=== PATIENT | male | born 1945 | race Caucasian/White ===

== ENCOUNTER → 2018-06-05 | Outpatient (CLI) | payer OTHER | LOC: BMCIMAGING 14:58 | PROVIDERS: ATTEND Physician Assistant | DX: M16.0 Bilateral primary osteoarthritis of hip (principal) ==

== ENCOUNTER → 2018-07-01 | Outpatient (CLI) | payer OTHER | LOC: BMCIMAGING 14:49 | PROVIDERS: ATTEND Orthopaedic Surgery | DX: M16.11 Unilateral primary osteoarthritis, right hip (principal) ==

== ENCOUNTER → 2018-08-25 | Outpatient (CLI) | payer OTHER | LOC: FIMAGING 15:01 | PROVIDERS: ATTEND Physician Assistant | DX: M25.551 Pain in right hip (principal); S73.191A Other sprain of right hip, initial encounter ==

== ENCOUNTER → 2018-09-08 | Outpatient (CLI) | payer OTHER | LOC: FIMAGING 15:14 | PROVIDERS: ATTEND Orthopaedic Surgery | DX: Z01.818 Encounter for other preprocedural examination (principal); M16.11 Unilateral primary osteoarthritis, right hip ==

== ENCOUNTER 2018-10-26 05:58 | Inpatient (IN) | payer OTHER ==
[2018-10-26] MEDS ORDERED: TRANEXAMIC ACID 1,000 MG in NS 100 ML IV ONE (06:00)
[2018-10-26] MEDS ORDERED: ROPIVACAINE 0.2% 80 MG, EPINEPHrine 0.2 MG, KETOROLAC TROMETHAMINE 30 MG, morphINE 10 M... IU ONE (06:00)
[2018-10-26] MEDS ORDERED: FAMOTIDINE 20 MG TAB PO ONE (06:06)
[2018-10-26] MEDS ORDERED: ceFAZolin 2 GM/DEXTROSE 100 ML IV ONE (06:06)
[2018-10-26] MEDS ORDERED: LR 1,000 ML IV ONE (06:07)
[2018-10-26] MEDS: ACETAMINOPHEN 325 MG TAB PO ONE ×2 (06:25→11:02)
--- NOTE | 2018-10-26 06:36 | PDHPUP ---
History & Physical Update H&P update statement: This history and physical update is based on an assessment of the patient which was completed after admission or registration (within 24 hours), but prior to the surgery/procedure. H&P update: no change in patient's condition since H&P completed
--- NOTE | 2018-10-26 06:37 | PDIAF ---
- Diagnosis Diagnosis: right hip djd Code Status: Full Code - Medication Management Discharge Medications: electronically signed and located in the Home Medication List. - Orders Services needed: Home Care, Physical Therapy Home Care Face to Face: I certify that this patient was under my care and that I had the required [id number] encounter meeting the encounter requirements on the discharge day. My findings support the fact that the patient is homebound as defined in Home Care Face to Face Continued: CMS Chapter 7 Medicare Benefits Manual 30.1.1 , The condition of the patient is such that there exists a normal inability to leave home and consequently, leaving home would require a considerable and taxing effort. Diet Recommendation: no restrictions on diet Diet Texture: Regular Texture Diet Additional Instructions: TOTAL JOINT ARTHROPLASTY DISCHARGE INSTRUCTIONS 1. Your surgeon follows the [facility] protocol for reducing your risk of DVT (blood clots) following surgery. Medication will be ordered to prevent blood clots. A sudden increase in calf pain and/or swelling could indicate a blood clot in your leg. If this occurs, please call your surgeon or his/her driller's assistant. An ultrasound of the leg may be necessary to diagnose a blood clot. If you have conditions that make you a higher risk for blood clots, your surgeon may use more aggressive ways to prevent them. Notify your surgeon if you think you are a high risk for blood clots. 2. Wear your white surgical stockings (ALEJANDRO hose) for 2 weeks. This decreases your swelling and may help prevent blood clots. It is ok to remove ALEJANDRO hose at night time to give your legs a break. 3. Swelling and bruising in the surgical leg is common. If you feel that it is excessive, please notify your surgeon. 4. Elevate your surgical leg with the ankle above the hip several times every day. Please keep the leg straight when you elevate by putting pillows under your foot. Do not put pillows under your knee. This will make being able to fully straighten more difficult. This is uncomfortable, but try to do it as much as possible. 5. For total knee replacements use compressive wrap on your knee for 3-5 days after surgery, then you can discontinue it. 6. Use a walker or crutches for 1-2 weeks. Progress your weight-bearing as tolerated. You may start to use a cane when you feel stable and safe. 7. You will receive physical therapy instructions in the hospital. Continue those exercises at home. There are additional exercises in the total joint booklet you were given before surgery. Outpatient physical therapy will begin 7- 10 days after surgery. Please schedule this in advance. 8. Use ice on your knee at least 3-5 times every day for 30 minutes. This helps reduce pain and swelling. Also use it at night before falling asleep. 9. Leave your surgical dressing in place for 2 weeks. Your dressing is water resistant, but not waterproof. Cover it with Saran Wrap or Upliv-a-Fqus before showering. You may shower as soon as you feel safe entering a shower. If you notice bleeding from your incision 2 or 3 days after surgery, please notify your surgeon. 10. Due to narcotics, decreased activity and altered diet, most patients experience constipation after surgery. Use sbro-kox-fljjpxa stool softeners while you are on narcotics. 11. You may drive a car when you are comfortable bearing weight, have good muscular control of your leg and are off narcotics. This usually occurs 2-4 weeks after surgery, depending on which leg was operated on. 12. If there are questions not addressed here, please refer the [facility] book given for more information. If you still have questions, please contact your surgeon s office. 13. If you have a life-threatening emergency, please call 911 and go to the emergency room immediately. For non-life threatening emergencies, please call your physicians office for advice before going to the emergency room. - Follow Up Care Current Providers and Referrals: Chucho Galindo MD [Primary Care Provider] - Jimbo Berrios MD [Medical Doctor] -
[2018-10-26] MEDS ORDERED: ceFAZolin 1 GM/5 ML SYR ONE (06:52)
[2018-10-26] MEDS ORDERED: MIDAZOLAM 2 MG/2 ML VIAL ONE (07:03)
[2018-10-26] MEDS ORDERED: SCOPOLAMINE HYDROBROMIDE 1 MG/3 DAYS PATCH TD ONE (07:03)
[2018-10-26] MEDS ORDERED: MIDAZOLAM 2 MG/2 ML VIAL IVP ONE (07:05)
--- NOTE | 2018-10-26 07:05 | PDANEPAE ---
ANE History of Present Illness 72 yo sharon ANE Past Medical History - Cardiovascular History Hx Hypertension: Yes Hx Arrhythmias: No Hx Chest Pain: No Hx Coronary Artery / Peripheral Vascular Disease: No Hx CHF / Valvular Disease: No Hx Palpitations: No - Pulmonary History Hx COPD: No Hx Asthma/Reactive Airway Disease: No Hx Recent Upper Respiratory Infection: No Hx Oxygen in Use at Home: No Hx Sleep Apnea: No Sleep Apnea Screening Result - Last Documented: Positive - Neurologic History Hx Cerebrovascular Accident: No Hx Seizures: No Hx Dementia: No - Endocrine History Hx Diabetes: No - Renal History Hx Renal Disorders: Yes Renal History Comment: BPH - Liver History Hx Hepatic Disorders: No - Neurological & Psychiatric Hx Hx Neurological and Psychiatric Disorders: Yes Neurological / Psychiatric History Comment: MIGRAINES TREATED WITH RX - Cancer History Hx Cancer: No - Congenital Disorder History Hx Congenital Disorders: No - GI History Hx Gastrointestinal Disorders: No - Other Health History Other Health History: OSTEOARTHRITIS. RT HIP LABRAL TEAR - Chronic Pain History Chronic Pain: Yes (RT HIP) - Surgical History Prior Surgeries: CERVICAL FUSION 2000. RT KNEE SCOPE 2006. LUMBAR LAMINECTOMY. SEPTOPLASTY ANE Review of Systems Review of Systems: - Exercise capacity METS (RN): 4 METS ANE Patient History - Allergies Allergies/Adverse Reactions: No Known Allergies Allergy (Verified 10/07/18 11:23) - Home Medications Home medications: home medication list seen and reviewed Home Medications: Acetaminophen/Caffeine [Tension Headache Caplet] 1 each PO DAILY PRN 10/07/18 [ Last Taken 10/25/18] Finasteride [Proscar 5 MG (*)] 5 mg PO DAILY 10/07/18 [Last Taken 10/26/18] Lisinopril 30 mg PO HS 10/07/18 [Last Taken 10/25/18] Multivitamins [Multivitamin (*)] 1 each PO DAILY 10/07/18 [Last Taken 10/26/18] Propranolol HCl [Inderal Xl] 120 mg PO HS 10/07/18 [Last Taken 10/25/18] Propranolol Sr [Inderal LA 60mg (*)] 60 mg PO HS 10/07/18 [Last Taken 10/25/18] Tamsulosin HCl [Flomax 0.4 MG (*)] 0.4 mg PO DAILY 10/07/18 [Last Taken 10/26/18 ] Valium 2 MG (*) PRN 10/13/18 [Last Taken 1 Week Ago ~10/19/18] - NPO status NPO Status: no food or drink >8 hours NPO Since - Liquids (Date): 10/26/18 NPO Since - Liquids (Time): 05:00 NPO Since - Solids (Date): 10/25/18 NPO Since - Solids (Time): 17:00 - Smoking Hx Smoking Status: Former smoker ANE Labs/Vital Signs - Vital Signs Blood Pressure: 152/97 Heart Rate: 58 Respiratory Rate: 16 O2 Sat (%): 95 Height: 6 ft Weight: 79.379 kg ANE Physical Exam - Airway Neck exam: FROM, spinal fusion Mallampati Score: Class 2 Mouth exam: normal dental/mouth exam - Pulmonary Pulmonary: no respiratory distress - Cardiovascular Cardiovascular: regular rate and rhythym - ASA Status ASA Status: II ANE Anesthesia Plan Anesthesia Plan: spinal
[2018-10-26] MEDS ORDERED: SCOPOLAMINE HYDROBROMIDE 1 MG/3 DAYS PATCH TD SCH (07:15)
[2018-10-26] MEDS ORDERED: PROPOFOL/EMULSION 500 MG/50 ML BOTTLE IV ONE ×2 (07:21→08:12)
[2018-10-26] MEDS ORDERED: DIAZEPAM 5 MG TAB PO PRN (07:25)
[2018-10-26] MEDS ORDERED: fentaNYL 100 MCG/2 ML INJ ONE ×2 (07:38→08:52)
[2018-10-26] MEDS ORDERED: DEXAMETHASONE 4 MG/ML VIAL ONE (07:51)
[2018-10-26] MEDS ORDERED: ONDANSETRON 4 MG/2 ML VIAL ONE (07:51)
[2018-10-26] MEDS ORDERED: ONDANSETRON 4 MG/2 ML VIAL IVP PRN ×2 (08:22→08:26)
[2018-10-26] MEDS ORDERED: NALOXONE HCL 0.4 MG/ML INJ IVP PRN (08:22)
[2018-10-26] MEDS ORDERED: PROMETHAZINE HCL 25 MG/ML INJ IVP PRN ×2 (08:22→08:26)
[2018-10-26] MEDS ORDERED: HYDROmorphONE/DILAUDID 1 MG/ML INJ IVP PRN (08:22)
[2018-10-26] MEDS ORDERED: POLYETHYLENE GLYCOL 3350 17 GM PKT PO PRN (08:26)
[2018-10-26] MEDS ORDERED: PROMETHAZINE HCL 25 MG SUPPR PR PRN (08:26)
[2018-10-26] MEDS ORDERED: METOCLOPRAMIDE 10 MG/2 ML VIAL IVP PRN (08:26)
[2018-10-26] MEDS ORDERED: MAGNESIUM HYDROXIDE 30 ML UDCUP PO PRN (08:26)
[2018-10-26] MEDS ORDERED: BISACODYL 10 MG SUPP PR PRN (08:26)
[2018-10-26] MEDS ORDERED: CYCLOBENZAPRINE 10 MG TAB PO PRN (08:26)
[2018-10-26] MEDS ORDERED: DIPHENOXYLATE/ATROPINE LOMOTIL 1 TAB PO PRN (08:26)
[2018-10-26] MEDS ORDERED: LACTULOSE 20 GM/30 ML UDCUP PO PRN (08:26)
[2018-10-26] MEDS ORDERED: TEMAZEPAM 15 MG CAP PO PRN (08:26)
[2018-10-26] MEDS ORDERED: oxyCODONE IR 5 MG TAB PO PRN (08:26)
[2018-10-26] MEDS ORDERED: diphenhydrAMINE 25 MG CAP PO PRN (08:26)
[2018-10-26] MEDS ORDERED: ONDANSETRON DISINTEGRATING 4 MG TAB PO PRN (08:26)
--- NOTE | 2018-10-26 08:26 | POSTOPPROG ---
Post Op Note Date of Operation: 10/26/18 Surgeon: Jimbo Berrios Help Desk Coordinator: Irvin Anesthesiologist: Quinton Anesthesia: Spinal Pre-op Diagnosis: Right hip OA Post-op Diagnosis: Right hip OA Indication: Right hip OA Procedure: Right MARIBEL, COREY assist Findings: Right hip OA Inf/Abcess present in the surg proc area at time of surgery?: No Depth: Deep Incisional (Fascial) EBL: 100-500 Drains: Hemovac
[2018-10-26] MEDS ORDERED: LR 1,000 ML IV SCH (08:30)
--- NOTE | 2018-10-26 08:53 | POSTANESTH ---
Post Anesthetic Evaluation Cardiovascular Status: Normal, Stable Respiratory Status: Normal, Stable Level of Consciousness/Mental Status: Can Participate in Eval Pain Control: Adequate, Prn Tx Ordered Nausea/Vomiting Control: Adequate, Prn Tx Ordered Complications Possibly Related to Anesthesia: None Noted
[2018-10-26] MEDS: fentaNYL 100 MCG/2 ML INJ IVP PRN ×2 (08:59→09:20)
[2018-10-26] MEDS: FINASTERIDE 5 MG TAB PO SCH (11:02)
[2018-10-26] MEDS: TAMSULOSIN HCL 0.4 MG CAP PO SCH (11:03)
[2018-10-26] MEDS: SENNOSIDES/DOCUSATE SODIUM TAB PO SCH ×2 (11:03→21:07)
--- NOTE | 2018-10-26 13:19 | PDMN ---
Medical Necessity Medical necessity: [facility] [place] S[place] MEHDI INMICHAEL OP: R MARIBEL, COREY assist AUTH#[id number] FOR CPT 20311 INPT
--- NOTE | 2018-10-26 14:14 | SOAPPROG ---
SOAP Progress Note Assessment/Plan: Assessment: s/p right MARIBEL, anterior approach, Biju assist - procedure earlier this morning Plan: Begin discharge planning - going home, will have support of his , home health Begin PT - follow anterior MARIBEL precautions Continue pain medication Continue VTE ppx - aspirin 325 mg Q daily, SCDs, ALEJANDRO hose Remove drain tomorrow morning 10/26/18 14:10 Subjective: Patient states he is feeling pretty good at this time. He is hoping to go home tomorrow and will have the support of his . He is also planning on having home health for a short period of time. He has already arranged outpatient PT. Patient denies shortness of breath, chest pain, fever, chills, nausea, vomiting , calf pain. Objective: Vital Signs Temp Pulse Resp BP Pulse Ox 36.4 C 65 12 113/71 93 10/26/18 14:06 10/26/18 14:06 10/26/18 14:06 10/26/18 14:06 10/26/18 14:06 10/25/18 10/26/18 10/27/18 05:59 05:59 05:59 Intake Total 1560 Output Total 10 Balance 1550 Patient resting comfortably in bed, no acute distress. RLE: Wound dressings are clean, dry and intact. Drain is in place. Lower leg compartments are soft and nontender. He can actively DF and PF the right foot and great toe against resistance. Grossly NVI distally. ICD10 Worksheet Patient Problems: Problems Problem Status Onset Unilateral primary osteoarthritis, right hip Acute
[2018-10-26] MEDS: ACETAMINOPHEN 325 MG TAB PO SCH ×2 (14:40→21:08)
--- NOTE | 2018-10-26 15:28 | ASMTCMCOM ---
CM Note CM Note Notes: Pt is s/p R MARIBEL. PT has cleared him. Anticipate he will d/c home independent with his when medically cleared. CM will continue to follow for any change in needs. D/C plan: anticipate home independent Date Signed: 10/26/2018 03:27 PM Electronically Signed By:BJORN Guajardo
[2018-10-26] MEDS: ceFAZolin 2 GM/DEXTROSE 100 ML IV SCH (15:49)
[2018-10-26] MEDS: TRANEXAMIC ACID 650 MG TAB PO SCH (15:49)
[2018-10-26] MEDS ORDERED: LISINOPRIL 20 MG TAB PO SCH (21:00)
[2018-10-26] MEDS ORDERED: PROPRANOLOL SR 60 MG CAP PO SCH ×2 (21:00)
[2018-10-26] MEDS: FAMOTIDINE 20 MG TAB PO SCH (21:06)
[2018-10-26] MEDS: ASPIRIN 325 MG TAB PO SCH (21:09)
[2018-10-27] MEDS: TRANEXAMIC ACID 650 MG TAB PO SCH ×2 (00:04→09:12)
[2018-10-27] MEDS: ceFAZolin 2 GM/DEXTROSE 100 ML IV SCH (00:08)
[2018-10-27] MEDS: ACETAMINOPHEN 325 MG TAB PO SCH ×2 (03:11→09:13)
[2018-10-27 08:09] VITALS: BP 104/69
--- NOTE | 2018-10-27 08:28 | SOAPPROG ---
SOALEJANDRINA Progress Note Assessment/Plan: Assessment: s/p right MARIBEL, anterior approach, Biju assist - POD1 Anemia - expected initially post-operatively. Asymptomatic. Will continue to monitor Plan: Discharge planning - patient is doing better than expected. He will be going home today, will have support of his . He will have home health/PT arranged Begin PT - follow anterior MARIBEL precautions. PT will need to clear him prior to d /c. WBAT, work on ROM as tolerated Continue pain medication Continue VTE ppx - aspirin 325 mg once daily, SCDs, ALEJANDRO hose. He will take aspirin until 6 weeks post-op and wear ALEJANDRO hose until 2 weeks post-op Follow up with Dr. Berrios's office at 2 weeks post-op Seek attention for increased pain, swelling, redness or other focal complaints Subjective: Patient states he is feeling very good this morning, he feels ready to leave for home. Patient has worked with PT this morning and will do OT later this morning. He denies shortness of breath, chest pain, fever, chills, nausea. Objective: Vital Signs Temp Pulse Resp BP Pulse Ox 37.1 C 62 16 104/69 95 10/27/18 08:00 10/27/18 08:00 10/27/18 08:00 10/27/18 08:00 10/27/18 08:00 Laboratory Results 10/27/18 04:14 10/26/18 10/27/18 10/28/18 05:59 05:59 05:59 Intake Total 2009 Output Total 1230 Balance 780 Patient is standing up with a walker. No acute distress. RLE: Drain has been removed. New Mepilex dressings have been applied. Lower leg compartments are soft, nontender, negative Homans sign. He can actively DF and PF his foot and great toe against resistance. Grossly NVI distally. ICD10 Worksheet Patient Problems: Problems Problem Status Onset Unilateral primary osteoarthritis, right hip Acute
--- NOTE | 2018-10-27 08:34 | PDDCSUM ---
Discharge Summary Discharge Summary: ADMIT DIAGNOSIS: Right hip degenerative joint disease DISCHARGE DIAGNOSIS: Right hip degenerative joint disease DATE/NAME OF PROCEDURE: October Right hip arthroplasty, anterior approach, Biju assist HPI: The patient is a 72 year old male who has end-stage arthritis of his right hip. Clinical and radiographic features are consistent with this. Patient has failed attempts at conservative management, therefore, recommended operative right total hip replacement. HOSPITAL COURSE: Patient was admitted to the hospital floor after uncomplicated right total hip arthroplasty. Patient tolerated the procedure well and had no additional complications. At the time of discharge, patient is tolerating an oral diet, pain is well controlled on oral medications, and is voiding without difficulty. Dressing is clean, dry and intact. There is no swelling or calf tenderness. Patient has intact plantarflexion, dorsiflexion, EHL function. X- rays demonstrate anatomic positioning with no fracture or lucency. DISCHARGE ACTIVITY: Patient is WBAT and can perform ROM as tolerated. Patient was instructed to keep dressing clean, dry and intact. He can shower but cannot take a bath/submerge the right hip. Patient is to seek attention for increasing redness, swelling, drainage or discharge. He will work with home PT for 1-2 weeks and then he will start outpatient PT. DISCHARGE MEDICATIONS: oxycodone 5 mg 1-2 every 3 hours prn pain, cyclobenzaprine 10 mg PO every 8 hours prn spasm, Zofran 4 mg orally disintegrating tablet every 8 hours prn nausea, aspirin 325 mg PO daily. FOLLOW-UP: Follow up in 2 weeks. Again, patient is to seek attention for increasing redness, swelling, drainage or discharge.
[2018-10-27] MEDS: TAMSULOSIN HCL 0.4 MG CAP PO SCH (09:12)
[2018-10-27] MEDS: FINASTERIDE 5 MG TAB PO SCH (09:12)
[2018-10-27] MEDS: ASPIRIN 325 MG TAB PO SCH (09:12)
[2018-10-27] MEDS: SENNOSIDES/DOCUSATE SODIUM TAB PO SCH (09:12)
[2018-10-27] MEDS: FAMOTIDINE 20 MG TAB PO SCH (09:13)
--- NOTE | 2018-10-27 09:44 | PDIAF ---
- Diagnosis Diagnosis: right hip djd Code Status: Full Code - Medication Management Discharge Medications: electronically signed and located in the Home Medication List. - Orders Services needed: Home Care, Physical Therapy Home Care Face to Face: I certify that this patient was under my care and that I had the required [id number] encounter meeting the encounter requirements on the discharge day. My findings support the fact that the patient is homebound as defined in Home Care Face to Face Continued: CMS Chapter 7 Medicare Benefits Manual 30.1.1 , The condition of the patient is such that there exists a normal inability to leave home and consequently, leaving home would require a considerable and taxing effort. Diet Recommendation: no restrictions on diet Diet Texture: Regular Texture Diet Additional Instructions: TOTAL JOINT ARTHROPLASTY DISCHARGE INSTRUCTIONS 1. Your surgeon follows the [facility] protocol for reducing your risk of DVT (blood clots) following surgery. Medication will be ordered to prevent blood clots. A sudden increase in calf pain and/or swelling could indicate a blood clot in your leg. If this occurs, please call your surgeon or his/her information services assistant. An ultrasound of the leg may be necessary to diagnose a blood clot. If you have conditions that make you a higher risk for blood clots, your surgeon may use more aggressive ways to prevent them. Notify your surgeon if you think you are a high risk for blood clots. 2. Wear your white surgical stockings (ALEJANDRO hose) for 2 weeks. This decreases your swelling and may help prevent blood clots. It is ok to remove ALEJANDRO hose at night time to give your legs a break. 3. Swelling and bruising in the surgical leg is common. If you feel that it is excessive, please notify your surgeon. 4. Elevate your surgical leg with the ankle above the hip several times every day. Please keep the leg straight when you elevate by putting pillows under your foot. Do not put pillows under your knee. This will make being able to fully straighten more difficult. This is uncomfortable, but try to do it as much as possible. 5. For total knee replacements use compressive wrap on your knee for 3-5 days after surgery, then you can discontinue it. 6. Use a walker or crutches for 1-2 weeks. Progress your weight-bearing as tolerated. You may start to use a cane when you feel stable and safe. 7. You will receive physical therapy instructions in the hospital. Continue those exercises at home. There are additional exercises in the total joint booklet you were given before surgery. Outpatient physical therapy will begin 7- 10 days after surgery. Please schedule this in advance. 8. Use ice on your knee at least 3-5 times every day for 30 minutes. This helps reduce pain and swelling. Also use it at night before falling asleep. 9. Leave your surgical dressing in place for 2 weeks. Your dressing is water resistant, but not waterproof. Cover it with Saran Wrap or Ilugi-q-Ynhv before showering. You may shower as soon as you feel safe entering a shower. If you notice bleeding from your incision 2 or 3 days after surgery, please notify your surgeon. 10. Due to narcotics, decreased activity and altered diet, most patients experience constipation after surgery. Use qeoo-tui-epdtsys stool softeners while you are on narcotics. 11. You may drive a car when you are comfortable bearing weight, have good muscular control of your leg and are off narcotics. This usually occurs 2-4 weeks after surgery, depending on which leg was operated on. 12. If there are questions not addressed here, please refer the [facility] book given for more information. If you still have questions, please contact your surgeon s office. 13. If you have a life-threatening emergency, please call 911 and go to the emergency room immediately. For non-life threatening emergencies, please call your physicians office for advice before going to the emergency room. - Follow Up Care Current Providers and Referrals: Chucho Galindo MD [Primary Care Provider] - Jimbo Berrios MD [Medical Doctor] - follow up in 2 weeks
--- NOTE | 2018-10-27 09:59 | ASMTLACE ---
LACE Length of stay for Answers: 2 days current admission Acuity / Level of Answers: Yes Care: Did the patient have an inpatient admission? Comorbidities - select Answers: Opioid dependence all that apply / Chronic pain Other Notes: HTN # of Emergency department Answers: 0 visits in the last 6 months Score: 10 Date Signed: 10/27/2018 09:55 AM Electronically Signed By:BJORN [place]
--- NOTE | 2018-10-27 10:22 | ASMTCMCOM ---
CM Note CM Note Notes: PT rec home care/outpatient. Pt wants [facility], chooses [facility]. Orders to be obtained via [employer]. Pt d/c address/phone verified. Date Signed: 10/27/2018 09:57 AM Electronically Signed By:BJORN [place]
--- NOTE | 2018-10-27 11:01 | GOP ---
[f rep st] OPERATIVE REPORT DATE OF OPERATION: 10/26/2018 SURGEON: Jimbo Berrios MD VICE PRESIDENT BUSINESS & CORPORATE DEVELOPMENT: Kolton Bryan, [employer], who was medical necessity for the entirety of the case. PREOPERATIVE DIAGNOSIS: Right hip degenerative joint disease. POSTOPERATIVE DIAGNOSIS: Right hip degenerative joint disease. PROCEDURE PERFORMED: Right total hip arthroplasty, MAKOplasty. FINDINGS: SPECIMENS: To pathology, the femoral head. ESTIMATED BLOOD LOSS: 200 cc. INDICATIONS: The patient is a -year-old gentleman who has end-stage arthritis to his righ t hip. Clinical and radiographic features are consistent with this. He has failed all attempts at c onservative management. I have therefore recommended operative intervention. I have outlined the downs rgical procedure, risks, benefits, and alternatives. He wished to proceed. Written consent was sign ed and placed in the patient's chart. DESCRIPTION OF PROCEDURE: The patient was identified in the preanesthesia area. The right hip clear ly demarcated as the operative site with indelible marker. He was given 2 g of Ancef intravenously e n route to the operative suite. In the OR, a spinal anesthetic was placed. He was positioned in the supine position. Additional sedation was performed. The pelvis and both lower extremities were kobi rilely prepped and draped in the usual fashion. Appropriate time-out procedure was carried out. Att ention was first turned to the left hemipelvis. A 2 cm incision was made over the iliac crest. Thre e pins were then placed and a pelvic reference array was affixed. Attention was then turned to the r ight hip, an anterior approach was made. Thick subcutaneous flaps were elevated. The fascia overlyi ng the tensor was opened and the tensor retracted laterally. The underlying vascular structures were cauterized and transected, and the rectus elevated off the anterior capsule. Retractors were placed into an extracapsular position. A T capsulotomy was then made and retractors were placed into an in tracapsular position. An acetabular checkpoint was placed. A bony wedge was withdrawn from the femo ral neck followed by removal of the femoral head. The bony landmarks were entered into the computer using the MAKOplasty software. The acetabular landmarks were then entered. A resection with a 54 mm acetabular reamer was then placed with an opening angle of 40 degrees and anteversion of 20 degrees. An acetabular shell was then placed, impacted, and confirmed to be fully seated. A 0-degree X3 yanira er was then placed and confirmed to be fully seated. The check point was removed. Attention was the n turned to the femur which was delivered through the use of extension of the table, soft tissue rele ases, the proximal canal was opened with a rongeur. Serial broaching carried out to a size 5 stem. Trial reduction was carried out, and ultimately, a 36 mm +0 mm neck length head was selected. Intrao perative fluoroscopy was used to confirm appropriate anatomic positioning. Leg lengths were equal, a nd stability profile revealed no subluxation with external rotation to 90 degrees in extension and hy perextension. The trial stem was withdrawn. A final size 5 stem was impacted, confirmed to be fully seated. A 36 mm, 0 mm Biolox head was then placed. The hip was copiously irrigated and reduced, wi th stable as above. A 10-Turkish PVC drain was then placed. The tissue was then copiously irrigated with pulsatile lavage. The skin, subcutaneous tissue, and muscle were injected with a joint cocktail of ropivacaine, Toradol, and epinephrine. The fascia closed using 0 Vicryl, subcutaneous tissue usi ng 2-0 Monocryl, and the skin stapled. A sterile compressive dressing was applied. The patient was awakened and taken to the recovery room in good, stable condition. TOTAL TOURNIQUET TIME: None. COMPLICATIONS: None. IMPLANT: Maurice Trident II acetabular shell, size 54 mm, 0-degree X3 liner, 36 mm inner diameter. Accolade II 127 degree neck angle hip stem size 5, Biolox ceramic head, 36 mm +0 mm neck length. DISPOSITION: To the recovery room, then the floor. He is weightbearing. Anterior precautions. /[id number]/MODL
--- NOTE | 2018-10-27 11:14 | ASDISCHSUM ---
Discharge Information Plan Status:Home with Home Health Medically Cleared to Leave: Discharge Date:10/27/2018 10:51 AM CM D/C Disposition: ADT D/C Disposition:Home Health Service Projected Discharge Date:10/27/2018 11:00 AM Transportation at D/C: Discharge Delay Reason: Follow-Up Date:10/27/2018 11:00 AM Discharge Slot: Final Diagnosis: Placement Information Referral Type:*Home Health Care Services Referral ID:[id number] Provider Name:[facility] Address 1:[address] Address 2: City:[place] Selection Factors: State:[place] Patient Contact Information Contact Name:MEET Relationship: Address:[address] City:[place] Alternate Phone: State/Zip Code:[place] [address] Email: Financial Information Financial Class:Medicare Advantage Plans Primary Plan Desc:[employer] MED[employer]ARE ADV Primary Plan Number:[id number] Secondary Plan Desc: Secondary Plan Number: Assessment Information LACE LACE Length of stay for Answers: 2 days current admission Acuity / Level of Answers: Yes Care: Did the patient have an inpatient admission? Comorbidities - select Answers: Opioid dependence all that apply / Chronic pain Other Notes: HTN # of Emergency department Answers: 0 visits in the last 6 months Score: 10 Date Signed: 10/27/2018 09:55 AM Electronically Signed By:BJORN [place] [facility] CM Progress Note CM Note CM Note Notes: Pt is s/p R MARIB[facility]. PT has cleared him. Anticipate he will d/c home independent with his when medically cleared. CM will continue to follow for any change in needs. D/C plan: anticipate home independent Date Signed: 10/26/2018 03:27 PM Electronically Signed By:BJORN Guajardo BC CM Progress Note CM Note CM Note Notes: PT rec home care/outpatient. Pt wants C, chooses [facility]. Orders to be obtained via [employer]. Pt d/c address/phone verified. Date Signed: 10/27/2018 09:57 AM Electronically Signed By:BJORN [place] Intervention Information
== END 2018-10-27 10:51 | disposition home health service (06) | DRG 470 ==
LOC: F3N 05:58
PROVIDERS: ADMIT Orthopaedic Surgery; ATTEND Orthopaedic Surgery
PROC: 8E0Y0CZ Robotic Assisted Procedure of Lower Extremity, Open Approach (ICD-10-PCS; principal; 2018-10-26 07:15)
PROC: 0SR904A Replacement of Right Hip Joint with Ceramic on Polyethylene Synthetic Substitute, Uncemented, Open Approach (ICD-10-PCS; principal; 2018-10-26 07:15)
DX: M16.11 Unilateral primary osteoarthritis, right hip (principal); I10 Essential (primary) hypertension; G47.30 Sleep apnea, unspecified; N40.0 Benign prostatic hyperplasia without lower urinary tract symptoms; G43.909 Migraine, unspecified, not intractable, without status migrainosus; Z98.1 Arthrodesis status; Z87.891 Personal history of nicotine dependence
CPT/HCPCS: 97110-GP; 97116-GP; 97161-GP; 97165-GO; J0171; J0690; J1100; J1885; J2250; J2270; J2405; J2704; J2795; J3010

== ENCOUNTER → 2018-12-09 | Outpatient (CLI) | payer OTHER | LOC: BMCIMAGING 14:29 ==